=== PATIENT | male | born 1965 | race Caucasian/White ===

== ENCOUNTER 2019-03-28 10:15 | Observation (INO) ==
[2019-03-28] MEDS ORDERED: ACETAMINOPHEN 325 MG TABLET PO PRN (12:06)
[2019-03-28] MEDS ORDERED: ONDANSETRON 4 MG/2 ML VIAL IV PRN (12:06)
[2019-03-28] MEDS ORDERED: GLUCAGON 1 MG VIAL IM PRN (12:06)
[2019-03-28] MEDS ORDERED: DEXTROSE 10% 25 GM/250 ML BAG IV PRN (12:06)
[2019-03-28] MEDS ORDERED: LORAZEPAM 2 MG PO PRN (12:10)
[2019-03-28 13:37] LABS: Troponin I < 0.015 NG/ML (0.00-0.045)
[2019-03-28] MEDS ORDERED: SITAGLIPTIN METFORMIN PO SCH (21:00)
[2019-03-28] MEDS: PANTOPRAZOLE 40 MG TABLET PO SCH (21:47)
[2019-03-29] MEDS ORDERED: DEXTROSE 50% 25 GM/50 ML VIAL IV PRN (06:23)
[2019-03-29 06:43] LABS: Basophils # 0.1 10*3/uL (0.0-0.2); Basophils % 0.8 % (0.0-0.8); Eosinophils # 0.2 10*3/uL (0.0-0.87); Eosinophils % 1.8 % (0.00-10.9); Hematocrit 47.9 VOL% (42.0-52.0); Hemoglobin 15.3 GM/DL (14.0-18.0); Immature Granulocytes % 1.4 %; Immature Granulocytes Absolute 0.17 #; Lymphocytes # 3.8 10*3/uL (1.4-4.0); Lymphocytes % 32.2 % (21.2-54.2); Mean Corpuscular HGB Conc 31.9 GM/DL (32-36); Mean Platelet Volume 10.6 FL (9.6-12.0); Monocytes % 10.7 % (1.7-12.7); Neutrophils % 53.1 % (38.7-73.9); Platelet Count 270 T/CUMM (130-400); Red Blood Count 5.32 MC/CUMM (3.8-5.5); Red Cell Distribution Width 14.8 % (9.3-17.3); White Blood Count 11.8 T/CUMM (4-12)
[2019-03-29 07:04] LABS: Alanine Aminotransferase 28 U/L (16-61); Albumin 3.3 G/DL (3.4-5.0); Alkaline Phosphatase 86 U/L (45-117); Aspartate Amino Transferase 20 U/L (0-37); Bilirubin,Total < 0.39 MG/DL (0.2-1.0); Blood Urea Nitrogen 13 MG/DL (7-18); Glucose 145 MG/DL (74-106); HDL Cholesterol 41 MG/DL (40-60); Osmolality,Calculated 277.7 MOS/KG (273-304); Risk Ratio 3.83; Total Protein 7.3 G/DL (6.4-8.3); Triglycerides 95 MG/DL (2-150)
[2019-03-29] MEDS ORDERED: INSULIN LISPRO 100 UNIT/ML SUBCUT SCH (07:30)
[2019-03-29 07:53] VITALS: BP 132/88
[2019-03-29] MEDS: PANTOPRAZOLE 40 MG TABLET PO SCH (08:32)
[2019-03-29] MEDS ORDERED: ASPIRIN EC 81 MG TABLET PO SCH (09:00)
[2019-03-29] MEDS ORDERED: METOPROLOL SUCCINATE XL 50 MG TABLET PO SCH (09:30)
[2019-03-29] MEDS ORDERED: METOPROLOL SUCCINATE XL 100 MG TABLET PO SCH (09:34)
== END 2019-03-29 11:35 | disposition home or self-care (01) ==
LOC: N.TELEN
PROVIDERS: ADMIT Family Medicine; ATTEND Family Medicine